=== PATIENT | female | born 1935 ===

== ENCOUNTER 2023-02-10 09:36 | Day surgery (SDC) | payer OTHER, MEDICARE ==
[2023-02-10] MEDS ORDERED: FERRIC CARBOXYMALTOSE 750 MG in SODIUM CHLORIDE 250 ML IVPB ONE (10:00)
[2023-02-10 18:22] VITALS: BP 129/57; PULSE 61; RESP 18; TEMP 98.2
== END 2023-02-10 11:35 | disposition home or self-care (01) ==
LOC: JONCNONCHE 09:36
PROVIDERS: ATTEND Internal Medicine Hematology & Oncology
PROC: 3E033GC Introduction of Other Therapeutic Substance into Peripheral Vein, Percutaneous Approach (ICD-10-PCS; principal; 2023-02-10)
DX: D50.9 Iron deficiency anemia, unspecified (principal)
CPT/HCPCS: 96365; J1439

== ENCOUNTER 2023-02-17 09:43 | Day surgery (SDC) | payer OTHER, MEDICARE ==
[2023-02-17] MEDS ORDERED: FERRIC CARBOXYMALTOSE 750 MG in SODIUM CHLORIDE 250 ML IVPB ONE (10:00)
[2023-02-17 15:08] VITALS: BP 150/52; PULSE 62; RESP 20; TEMP 98.2
== END 2023-02-17 11:10 | disposition home or self-care (01) ==
LOC: J7W 09:43 → JONCNONCHE 09:43
PROVIDERS: ATTEND Internal Medicine Hematology & Oncology
PROC: 3E033GC Introduction of Other Therapeutic Substance into Peripheral Vein, Percutaneous Approach (ICD-10-PCS; principal; 2023-02-17)
DX: D50.9 Iron deficiency anemia, unspecified (principal)
CPT/HCPCS: 96365; J1439

== ENCOUNTER 2023-05-25 09:53 | Day surgery (SDC) | payer OTHER, MEDICARE ==
[~2023-05-25 09:53] MED LIST: FERRIC CARBOXYMALTOSE 750 MG in SODIUM CHLORIDE 250 ML IVPB ONE
[2023-05-25 10:36] LABS: BASO % 1.1 % (0-2.0); EOS % 5.1 % (0-4.5); HEMATOCRIT 26.7 % (32.4-45.2); HEMOGLOBIN 8.5 GM/dL (10.7-15.3); LYMPH % 10.8 % (8-40); MCH 33.2 pg (25.7-33.7); MCHC 31.8 g/dl (32.0-36.0); MEAN CELL VOLUME 104.5 fl (80-96); MEAN PLT VOLUME 6.8 fl (7.5-11.1); MONO % 6.1 % (3.8-10.2); NEUT % 76.9 % (42.8-82.8); PLATELET COUNT 328 10^3/uL (134-434); RBC 2.56 M/mm3 (3.60-5.2); RDW 13.5 % (11.6-15.6); WHITE BLOOD COUNT 6.9 K/mm3 (4.0-10.0)
[2023-05-25 15:41] VITALS: BP 130/61; PULSE 64; RESP 20; TEMP 97.7
== END 2023-05-25 11:50 | disposition home or self-care (01) ==
LOC: JONCNONCHE 09:53 → J7W 09:53 → JONCNONCHE 11:50
PROVIDERS: ATTEND Internal Medicine Hematology & Oncology
PROC: 3E033GC Introduction of Other Therapeutic Substance into Peripheral Vein, Percutaneous Approach (ICD-10-PCS; principal; 2023-05-25)
DX: D50.9 Iron deficiency anemia, unspecified (principal); D46.9 Myelodysplastic syndrome, unspecified
CPT/HCPCS: 36415; 82728; 83540; 85025; 86850; 86900; 86901; 96365; J1439